=== PATIENT | male | born 1995 | race Two or more races ===

== ENCOUNTER 2016-06-29 23:33 | Emergency (ER) | payer SELFPAY ==
[~2016-06-29] VITALS: Ht 348 cm; Wt 83.9 kg
[2016-06-29 23:55] VITALS: BP 121/64
== END 2016-06-30 02:05 | disposition left against medical advice (07) ==
LOC: ER 23:33
DX: M54.9 Dorsalgia, unspecified (principal); V49.49XA Driver injured in collision with other motor vehicles in traffic accident, initial encounter; Y93.89 Activity, other specified; Y99.8 Other external cause status; Y92.410 Unspecified street and highway as the place of occurrence of the external cause